=== PATIENT | male | born 1980 | race Caucasian/White ===

== ENCOUNTER 2020-06-12 22:10 | Emergency (ER) | payer MEDICAID ==
[~2020-06-12] VITALS: Ht 190.5 cm; Wt 86.4 kg
[~2020-06-12 22:10] MED LIST: CLINDAMYCIN300 MG PO; FLEXERIL 1010 MG/TAB PO; LORTAB 5/500 501 TAB PO; MOTRIN800 MG PO; NAPROSYN500 MG PO; NO HOME MEDICATIONS; NORCO 325 MG-51 TAB PO; NORCO 325 MG-7.1 TAB PO; PENICILLIN250 MG PO; PERCOCET 325 MG1 TA2 PO
[2020-06-12 22:16] VITALS: TEMP 97.8
[2020-06-12] MEDS ORDERED: MEDROL 4MG DOSPA4 MG PO (23:12)
[2020-06-12] MEDS ORDERED: FLEXERIL 1010 MG/TAB PO (23:20)
[2020-06-12 23:30] VITALS: BP 158/106; PULSE 78
== END 2020-06-12 23:30 | disposition home or self-care (01) ==
LOC: COL.ER 22:10
DX: M54.16 Radiculopathy, lumbar region (principal); F17.210 Nicotine dependence, cigarettes, uncomplicated; Z88.1 Allergy status to other antibiotic agents
CPT/HCPCS: J1885; J2360